=== PATIENT | female | born 1980 | race Caucasian/White ===

== ENCOUNTER 2024-12-05 12:09 | Emergency (ER) | payer SELFPAY ==
[2024-12-05] MEDS: Ketorolac 30 MG/ML SDV IM ONE (12:39)
== END 2024-12-05 13:47 | disposition home or self-care (01) ==
LOC: DL.ED 12:09
DX: S83.92XA Sprain of unspecified site of left knee, initial encounter (principal); Z91.040 Latex allergy status; Z79.899 Other long term (current) drug therapy; X50.9XXA Other and unspecified overexertion or strenuous movements or postures, initial encounter
CPT/HCPCS: 73562; 96372; 99282; 99283; J1885

== ENCOUNTER 2025-07-15 08:30 | Emergency (ER) | payer BC | END 2025-07-15 09:27 | disposition home or self-care (01) | LOC: DL.ED 08:30 | DX: R20.2 Paresthesia of skin (principal); H57.9 Unspecified disorder of eye and adnexa; T42.6X5A Adverse effect of other antiepileptic and sedative-hypnotic drugs, initial encounter; T38.1X5A Adverse effect of thyroid hormones and substitutes, initial encounter; Z90.410 Acquired total absence of pancreas; Z88.8 Allergy status to other drugs, medicaments and biological substances | CPT/HCPCS: 99283; Q0163; 99282 ==